=== PATIENT | male | born 1945 | race American Indian/Alaskan Native ===

== ENCOUNTER 2016-08-06 10:52 | Outpatient (CLI) | payer OTHER ==
--- NOTE | 2016-08-06 11:29 | XRay Report ---
ROUTINE CHEST, TWO VIEWS: HISTORY: Lung cancer. There is no comparison at this facility. There is volume loss in the left lung and left perihilar scarring. This could represent a partial left pneumonectomy or radiation changes to the left hilum. The left hilum is somewhat irregular but there is no obvious mass. The right lung remains clear. Heart size is normal. Left arm PICC terminates in the superior SVC. IMPRESSION: Abnormal left lung suggesting partial left pneumonectomy or radiation changes. There are no studies for comparison at this facility. Consider further evaluation with CT chest with contrast.
== END 2016-08-06 10:53 | disposition home or self-care (01) ==
LOC: XRAY 10:52
PROVIDERS: ATTEND Specialist
DX: C34.12 Malignant neoplasm of upper lobe, left bronchus or lung (principal); Z90.2 Acquired absence of lung [part of]; Z95.828 Presence of other vascular implants and grafts
CPT/HCPCS: 71020

== ENCOUNTER 2020-01-24 08:40 | Day surgery (SDC) | payer MEDICARE, OTHER ==
[2020-01-20 11:26] LABS: Hematocrit 46.5 % (35.5-45.6); Hemoglobin 15.7 gm/dl (11.8-15.2); Mean Corpuscular HGB Conc 34 % (32-34); Mean Corpuscular Volume 102 fl (84-94); Platelet Count 193 K/mm3 (140-440); Red Blood Count 4.56 M/mm3 (3.65-5.03); Red Cell Distribution Width 14.1 % (13.2-15.2)
[2020-01-20 11:40] LABS: Alanine Aminotransferase 22 units/L (7-56); Albumin 4.3 g/dL (3.9-5); BUN/Creatinine Ratio 16; Blood Urea Nitrogen 14 mg/dL (9-20); Calcium 9.9 mg/dL (8.4-10.2); Hemolysis Index 46
--- NOTE | 2020-01-20 19:36 | Anesthesia Consultation ---
Anesthesia Consult and Med Hx Date of service: 01/24/20 - Airway Anesthetic Teeth Evaluation: Poor (multiple broken teeth), Caps ROM Head & Neck: Adequate Mental/Hyoid Distance: Adequate Mallampati Class: Class II Intubation Access Assessment: Probably Good - Pulmonary Exam CTA: Yes - Cardiac Exam Cardiac Exam: RRR - Pre-Operative Health Status ASA Pre-Surgery Classification: ASA3 Proposed Anesthetic Plan: General - Pulmonary Hx Smoking: Yes (50pk yr hx; quit 2015) Hx Respiratory Symptoms: No COPD: Yes (albuterol prn, usually 2-4x/wk) Home Oxygen Therapy: No Hx Sleep Apnea: No (TOMMY PRE SCREEN HIGH RISK) - Cardiovascular System Hx Hypertension: Yes Hx Heart Attack/AMI: No Hx Percutaneous Transluminal Coronary Angioplasty (PTCA): No Hx Cardia Arrhythmia: Yes (episode a-fib during prior hospitalization, NSR on current EKG) Hx Pacemaker: No Hx Internal Defibrillator: No Hx Peripheral Vascular Disease: Yes (last dose plavix 01/17/20) - Central Nervous System CVA: No - Endocrine Hx Renal Disease: No Hx Liver Disease: No Hx Insulin Dependent Diabetes: No Hx Non-Insulin Dependent Diabetes: No Hx Thyroid Disease: No - Other Systems Hx Cancer: Yes (hx colon and lung ca) - Additional Comments Anesthesia Medical History Comments: No hx anesthetic complications.
[~2020-01-24 08:40] MED LIST: LACTATED RINGERS 1,000 ML IV SCH; ceFAZolin/STERILE WATER 2 GM/20 ML SYRINGE IV NR
--- NOTE | 2020-01-24 10:16 | Anesthesia Day of Surgery ---
Anesthesia Day of Surgery - Day of Surgery Patient Examined: Yes Patient H&P Reviewed: Yes Patient is NPO: Yes
[2020-01-24] MEDS ORDERED: PHENYLEPHRINE/NS 1,000 MCG/10 ML SYRINGE (OR USE) IV ONE (11:17)
[2020-01-24] MEDS ORDERED: dexAMETHasone 20 MG/5 ML VIAL ONE (11:17)
[2020-01-24] MEDS ORDERED: LIDOCAINE MPF (2%) 20 MG/1 ML VIAL 5 ML ONE (11:17)
[2020-01-24] MEDS ORDERED: ONDANSETRON 4 MG/2 ML INJ ONE (11:17)
[2020-01-24] MEDS ORDERED: GLYCOPYRROLATE 0.4 MG/2 ML INJ ONE (11:17)
[2020-01-24] MEDS ORDERED: fentaNYL 100 MCG/2 ML INJ ONE (11:17)
[2020-01-24] MEDS ORDERED: propofoL 200 MG/20 ML VIAL IV ONE (11:17)
[2020-01-24] MEDS ORDERED: WATER FOR IRRIG STERILE 2000 ML IR ONE (12:15)
[2020-01-24] MEDS ORDERED: WATER FOR IRRIG STERILE 1,500 ML BOTTLE IR ONE (12:15)
--- NOTE | 2020-01-24 12:22 | Short Stay Summary ---
Short Stay Documentation Date of service: 01/24/20 - History H&P: obtained from office - Allergies and Medications Current Medications: Allergies aspirin Allergy (Verified 01/18/20 13:23) ABD PAIN Home Medications Medication Instructions Recorded Confirmed Last Taken Type Clopidogrel [Plavix] 75 mg PO QDAY 01/18/20 01/24/20 01/20/20 09:00 History Meloxicam [Mobic] 7.5 mg PO PRN PRN 01/18/20 01/24/20 01/17/20 09:00 History Albuterol Sulfate [Proventil Hfa] 2 puff IH PRN PRN 01/20/20 01/24/20 01/22/20 09:00 History AtorvaSTATin [Lipitor] 40 mg PO QHS 01/20/20 01/24/20 01/21/20 20:00 History Cholecalciferol (Vitamin D3) 2,000 unit PO 3XW 01/20/20 01/24/20 01/22/20 09:00 History [Vitamin D3 2,000 UNIT CAP] Cyanocobalamin (Vitamin B-12) 2,500 mcg PO DAILY 01/20/20 01/24/20 01/22/20 09:00 History [Vitamin B12] Metoprolol [Lopressor] 12.5 mg PO BID 01/20/20 01/24/20 01/24/20 05:00 History Multivit-Min/FA/Lycopen/Lutein 1 each PO 3XW 01/20/20 01/24/20 01/22/20 09:00 History [Centrum Silver Men Tablet] Active Medications Cefazolin Sodium (Ancef/Sterile Water 2 Gm/20 Ml) 2 gm IV PREOP NR Stop: 01/24/20 23:59 Fentanyl (Sublimaze) 50 mcg IV Q5MIN PRN PRN Reason: Pain , Severe (7-10) Lactated Ringer's (Lactated Ringers) 1,000 mls @ 100 mls/hr IV DIRECT FATUMA Stop: 01/24/20 23:59 Last Admin: 01/24/20 09:40 Dose: 100 mls/hr Documented by: - Brief post op/procedure progress note Date of procedure: 01/24/20 Pre-op diagnosis: urethral stricture, bladder mass Post-op diagnosis: same Procedure: cysto, rpg, urethral dilation, bladder , turbt Anesthesia: GETA Surgeon: ALE PEARL Estimated blood loss: minimal Pathology: list Specimen disposition: to lab Condition: stable - Hospital course Hospital course: ultram & levaquin on chart - Disposition Condition at discharge: Stable Disposition: DC-01 TO HOME OR SELFCARE Short Stay Discharge Plan Follow up with: JANETTE BANERJEE MD [Primary Care Provider] - 7 Days
[2020-01-24] MEDS: fentaNYL 100 MCG/2 ML INJ IV PRN ×2 (12:30→12:42)
--- NOTE | 2020-01-24 12:37 | Operative Report ---
PREOPERATIVE DIAGNOSIS: Urethral stricture, bladder mass. POSTOPERATIVE DIAGNOSIS: Urethral stricture, bladder mass. PROCEDURES: Cystoscopy, bilateral retrograde pyelograms, urethral dilatation, bladder biopsy, TUR of small bladder tumor. SURGEON: Christopher Estevez MD. ANESTHESIA: General. ESTIMATED BLOOD LOSS: Minimal. FLUIDS: Crystalloid. COMPLICATIONS: No complications. INDICATIONS: This 74-year-old gentleman seen in the office for hematuria. CT was unremarkable except for BPH and renal cyst. Office cystoscopy had a urethral stricture that was dilated, also was found to have a bladder mass. He presents now for surgical intervention. I stopped his Plavix 7 days. DESCRIPTION OF PROCEDURE: The patient was taken to the operative suite, placed in a supine position. After adequate general anesthesia, placed in a dorsal lithotomy position, prepped and draped in a sterile fashion. Pancystourethroscopy was performed with a 22-Slovak Storz cystoscope. The patient had some narrowing of the bulbar urethra. Urethral dilatation to 26-Slovak was performed. Prostate displayed some mild trilobar obstruction, bladder erythema and a small polyp on his right posterolateral side. There was a patch of erythema approximately 2 cm and a small 5 mm polyp. Bilateral retrograde pyelograms were obtained with an 8-Slovak Zulema catheter and 8 mL of contrast. No filling defects or obstruction. Next, using a cold cup biopsy forceps, biopsy of the patchy infiltration was performed and then using a yellow loop, the little polyp was removed followed by cauterizing the entire patchy area, cutting and coag was 100 cut, 60 coag. The patient tolerated the procedure well. His bladder was drained. Rectal exam was benign. He was extubated and taken to recovery room. He will go home on Levaquin and Ultram. JOB# [id number] [facility]
--- NOTE | 2020-01-24 13:29 | Post Anesthesia Evaluation ---
- Post Anesthesia Evaluation Patient Participated: Yes Airway Patent: Yes Stable Respiratory Function: Yes Nausea/Vomiting: No Temp > 96.8F: Yes Pain Manageable: Yes Adequeate Hydration: Yes Anesthesia Complications: No
[2020-01-24 13:35] VITALS: BP 120/81
--- NOTE | 2020-01-24 15:05 | Fluoroscopy Report ---
Bilateral retrograde urography, fluoroscopically guided INDICATION: Hematuria FINDINGS: No filling defects identified within either ureter or either collecting system. IMPRESSION: No ureteral filling defects identified Fluoroscopy time: 6 seconds. Fluoroscopic images: 4. Signer Name: Mario Charles MD Signed: 01/24/2020 3:01 PM Workstation Name: [id number]
== END 2020-01-24 14:00 | disposition home or self-care (01) ==
LOC: OR 08:40
PROVIDERS: ATTEND Urology
DX: N35.819 Other urethral stricture, male, unspecified site (principal); Z20.828 Contact with and (suspected) exposure to other viral communicable diseases; N32.89 Other specified disorders of bladder; I73.9 Peripheral vascular disease, unspecified; E78.00 Pure hypercholesterolemia, unspecified; M19.90 Unspecified osteoarthritis, unspecified site; J44.9 Chronic obstructive pulmonary disease, unspecified; I48.91 Unspecified atrial fibrillation; K21.9 Gastro-esophageal reflux disease without esophagitis; Z88.6 Allergy status to analgesic agent; Z79.899 Other long term (current) drug therapy; Z87.891 Personal history of nicotine dependence; Z85.118 Personal history of other malignant neoplasm of bronchus and lung; Z85.038 Personal history of other malignant neoplasm of large intestine; Z86.2 Personal history of diseases of the blood and blood-forming organs and certain disorders involving the immune mechanism
CPT/HCPCS: 36415; 52224; 74420; 80053; 85027; 88305; 93005; A4217; C1758; J0690; J1100; J2370; J2405; J2704; J3010; J7120; Q9967; U0003